=== PATIENT | female | born 1975 | race Two or more races ===

== ENCOUNTER 2020-08-04 12:57 | Emergency (ER) | payer SELFPAY ==
[~2020-08-04] VITALS: Ht 157.5 cm; Wt 94.3 kg
[2020-08-04 12:59] VITALS: BP 116/62
== END 2020-08-04 13:18 | disposition left against medical advice (07) ==
LOC: ER 12:57
DX: R07.89 Other chest pain (principal); Z53.21 Procedure and treatment not carried out due to patient leaving prior to being seen by health care provider
CPT/HCPCS: 93005